=== PATIENT | male | born 1990 | race Caucasian/White ===

== ENCOUNTER → 2017-01-20 | Outpatient (CLI) | payer OTHER ==
[2014-09-02 04:46] VITALS: BP 118/71
--- NOTE | 2017-01-20 17:06 | RAD ---
Indication: Persistent cough. Time of exam 1651 hours. Correlation is made with prior study from 09/02/2014. FINDINGS: The heart size is normal. The lungs are clear. No pleural effusion or pneumothorax is identified. The pulmonary vascularity is normal. IMPRESSION: No acute abnormality detected.
== END | disposition home or self-care (01) ==
LOC: RAD 16:41
PROVIDERS: ATTEND Nurse Practitioner Family
DX: R05 Cough (principal)
CPT/HCPCS: 71020

== ENCOUNTER → 2017-04-23 | Outpatient (CLI) | payer OTHER ==
[2017-04-23 06:52] LABS: ALBUMIN 4.3 g/dL (3.4-5.0); ALBUMIN/GLOBULIN RATIO 1.2 (1.0-1.7); ALK PHOS 77 U/L (46-116); ALT (SGPT) 39 U/L (16-63); ANION GAP 12 (6-14); AST (SGOT) 23 U/L (15-37); BLOOD UREA NITROGEN 16 mg/dL (8-26); BUN/CREATININE RATIO 16 (6-20); CALCIUM 9.6 mg/dL (8.5-10.1); CARBON DIOXIDE 28 mmol/L (21-32); CHLORIDE 103 mmol/L (98-107); GFR 89.6; GLUCOSE 79 mg/dL (70-99); POTASSIUM 3.6 mmol/L (3.5-5.1); SODIUM 143 mmol/L (136-145); TOTAL BILIRUBIN 0.4 mg/dL (0.2-1.0); TOTAL PROTEIN 7.8 g/dL (6.4-8.2)
[2017-04-23 07:06] LABS: FREE T4 0.99 ng/dL (0.76-1.46)
[2017-04-23 07:06] LABS: THYROID STIM HORMONE (TSH) 5.196 uIU/mL (0.358-3.74)
== END | disposition home or self-care (01) ==
LOC: LAB 04:01
DX: I10 Essential (primary) hypertension (principal)
CPT/HCPCS: 36415; 80053; 84439; 84443